=== PATIENT | female | born 1975 | race Caucasian/White ===

== ENCOUNTER → 2016-12-23 | Outpatient (CLI) | payer OTHER ==
[~2016-12-23] MED LIST: CLC100 PO; IBUP600T44 PO; OXYC-57 PO; PRENTAB26 PO
--- NOTE | 2016-12-23 10:06 | DIAGNOSTIC IMAGING REPORT ---
ABDOMEN LIMITED (US) HISTORY: INCISIONAL PAIN/ TECHNIQUE: Real-time sonographic imaging of the anterior pelvis at the patient's site was performed. COMPARISON STUDY: None. FINDINGS: No sonographic abnormality along the right side of the scar. No fluid collections or masses. IMPRESSION: No sonographic abnormality at the scar. Electronically signed by: Connor Hernández M.D. 12/23/2016 10:05 AM Dictated Date/Time: 12/23/2016 10:04 AM
== END | disposition home or self-care (01) ==
LOC: C.ULTR 09:38
PROVIDERS: ATTEND Family Medicine
DX: R20.8 Other disturbances of skin sensation (principal)

== ENCOUNTER → 2017-03-21 | Outpatient (CLI) | payer OTHER ==
[2017-03-21 13:29] LABS: BASO % 0.3 %; BASO ABS # 0.02 K/uL (0-0.2); EOS % 1.3 %; HEMATOCRIT 41.3 % (37-47); HEMOGLOBIN 14.3 g/dL (12.0-16.0); IG# 0.01 K/uL (0.00-0.02); LYMPH % 30.5 %; LYMPH ABS # 2.26 K/uL (1.2-3.4); MEAN CELL VOLUME 88.2 fL (80-100); MEAN CORPUSCULAR HEMOGLOBIN 30.6 pg (25-34); MEAN CORPUSCULAR HGB CONC 34.6 g/dl (32-36); MEAN PLATELET VOLUME 10.3 fL (7.4-10.4); MONO % 5.9 %; MONO ABS # 0.44 K/uL (0.11-0.59); NEUT % 61.9 %; NEUT ABS # 4.59 K/uL (1.4-6.5); PLATELET COUNT 210 K/uL (130-400); RED CELL DISTRIBUTION WIDTH CV 12.3 % (11.5-14.5); WHITE BLOOD COUNT 7.42 K/uL (4.8-10.8)
== END | disposition home or self-care (01) ==
LOC: C.LAB 11:54
PROVIDERS: ATTEND Physician Assistant
DX: M25.571 Pain in right ankle and joints of right foot (principal)